=== PATIENT | male | born 1995 | race Caucasian/White ===

== ENCOUNTER 2016-10-15 17:06 | Emergency (ER) | payer OTHER ==
[~2016-10-15] VITALS: Ht 180.3 cm; Wt 104.3 kg
--- NOTE | 2016-10-15 17:06 | NUR ---
Patient was BIBA and taken to bed 03 via gurney per EMS.
[2016-10-15 17:11] VITALS: BP 158/77
--- NOTE | 2016-10-15 17:17 | NUR ---
21/M BIBA FROM HOME FOR SUICIDAL IDEATION PLACED ON HOLD BY KELSEY JETT. AAOX4 WITH EVEN AND STEADY GAIT;PT STATED PT USED MARIJUANA & HAD CUT HIS LEFT INNER FOREARM X LAST NIGHT BECAUSE PT IS DEPRESSED ABOUT A RECENT BREAK UP & OTHER ISSUES. PT STATED PT DOESN'T HAVE AN IDEA TO HURT OTHERS.PT DENIES TO HEAR VOICES. HX OF DEPRESSION BUT PT DOES NOT TAKE ANY MEDS. PT'S SKIN LEFT INNER FOREARM ABOUT 15 CUTS; NO ACTIVE BLEEDING NOTED AT THIS TIME. LUNGS CLEAR BL; HR EVEN AND REGULAR; PT DENIES ANY FEVER, CP, SOB, OR COUGH AT THIS TIME; PATIENT STATES PAIN OF 0/10 AT THIS TIME; PATIENT POSITIONED FOR COMFORT; HOB ELEVATED; BEDRAILS UP X2; BED DOWN. ER MD MADE AWARE OF PT STATUS.
--- NOTE | 2016-10-15 17:30 | NUR ---
Dr. Guzmán evaluaitng patient at bedside.
[2016-10-15 17:54] LABS: BASOPHILS # (AUTO) 0.4 K/uL (0.00-0.22); BASOPHILS % (AUTO) 2.3 % (0.0-2.0); EOSINOPHILS # (AUTO) 0.3 K/uL (0-0.4); EOSINOPHILS % (AUTO) 2.1 % (0.0-4.0); HEMATOCRIT 47.8 % (36-52); HEMOGLOBIN 15.9 g/dL (12.0-18.0); LYMPHOCYTES # (AUTO) 2.1 K/uL (2.0-11.5); LYMPHOCYTES % (AUTO) 13.2 % (20.5-51.1); MEAN CORPUSCULAR HEMOGLOBIN 29 pg (27-31); MEAN CORPUSCULAR HGB CONC 33 g/dL (33-37); MEAN CORPUSCULAR VOLUME 86 fL (80-94); MONOCYTES # (AUTO) 0.6 K/uL (0.8-1.0); MONOCYTES % (AUTO) 3.8 % (1.7-9.3); NEUTROPHILS # (AUTO) 12.7 K/uL (1.8-7.7); NEUTROPHILS % (AUTO) 78.6 % (42.2-75.2); PLATELET COUNT (AUTO) 258 K/uL (140-450); RED BLOOD CELL COUNT(AUTO) 5.56 MIL/uL (4.20-6.10); RED CELL DISTRIBUTION WIDTH 13.1 % (11.6-13.7); WHITE BLOOD COUNT (AUTO) 16.1 K/uL (4.5-11.0)
--- NOTE | 2016-10-15 18:00 | NUR ---
PT MOTHER AT BEDSIDE Addendum: 10/15/16 at 1922 by MEDJR AO X4, COOPERATIVE, SIDERAILS UP, SPEAKING APPROPRIATELY, WILL CONTINUE TO MONITOR
[2016-10-15 18:10] LABS: ALANINE AMINOTRANSFERASE 24 U/L (12-78); ALBUMIN 3.9 g/dL (3.4-5.0); ALKALINE PHOSPHATASE 74 U/L (46-116); ASPARTATE AMINOTRANSFERASE 14 U/L (15-37); CALCIUM 8.7 mg/dL (8.5-10.1); CARBON DIOXIDE 30.2 mmol/L (21-32); CHLORIDE 107 mmol/L (98-107); CREATININE 1.1 mg/dL (0.6-1.3); GFR ARICAN-AMERICAN 110 mL/min (>90); GFR NON ARICAN-AMERICAN 91 mL/min (>90); GLUCOSE 93 mg/dL (74-106); POTASSIUM 4.2 mmol/L (3.5-5.1); SALICYLATE 3.3 mg/dL (2.8-20.0); SODIUM SERUM 142 mmol/L (136-145); TOTAL BILIRUBIN 0.4 mg/dL (0.0-1.0); TOTAL PROTEIN, SERUM 7.1 g/dL (6.4-8.2); UREA NITROGEN, BLOOD 6 mg/dL (7-18)
[2016-10-15 18:11] LABS: ACETAMINOPHEN < 0.5 ug/ml (10-30); ALCOHOL, BLOOD < 3 mg/dL (<3)
[2016-10-15 18:34] LABS: BILIRUBIN,URINE NEGATIVE (NEGATIVE); BLOOD, URINE NEGATIVE (NEGATIVE); COLOR,URINE YELLOW (YELLOW); LEUKOCYTE ESTERASE ,URINE NEGATIVE (NEGATIVE); NITRITE, URINE NEGATIVE (NEGATIVE); PROTEIN,URINE NEGATIVE (NEGATIVE); UGLUCOSE NEGATIVE (NEGATIVE); UROBILINOGEN,URINE 0.2 EU/dL (0.2 - 1)
[2016-10-15 18:40] LABS: AMPHETAMINE, URINE NEG. ng/ml (NEG <=1000); BARBITURATE, URINE NEG. ng/ml (NEG <=200); BENZODIAZEPINE, URINE POS. ng/mL (NEG <=200); CANNABINOID, URINE POS. ng/mL (NEG <=50); COCAINE, URINE POS. ng/mL (NEG <=300); OPIATE, URINE NEG. ng/mL (NEG <=2000); PHENCYCLIDINE SCREEN,URINE NEG. ng/mL (NEG <=25)
--- NOTE | 2016-10-15 19:00 | NUR ---
MOTHER WENT TO THE WAITING ROOM, NOTIFIED PT IS A [employer] MEM[employer], FATHER IS NOW AT BEDSIDE
[2016-10-15 19:01] LABS: APPEARANCE,URINE CLEAR (CLEAR)
--- NOTE | 2016-10-15 19:09 | NUR ---
GAVE REPORT TO KARINA BARNES ; [facility]
--- NOTE | 2016-10-15 19:26 | NUR ---
Pt report given to KARINA LOZANO. Transfer of care at this time.
--- NOTE | 2016-10-15 20:00 | NUR ---
Conrad from [facility] called for report. Stated he will speak with his doctor re: admission.
--- NOTE | 2016-10-15 21:00 | NUR ---
Pt resting and talking with GF at bedside. No changes.
[2016-10-15 22:06] VITALS: BP 134/72
--- NOTE | 2016-10-15 22:06 | NUR ---
Patient to be transferred to [facility]. Is being transferred due to 5150 facility needed. Receiving facility has accepting physician and available space. ER physician has signed transfer form. Patient or responsible democrat has agreed to transfer and signed form. Patient belongings inventoried and will be sent with patient. Copy of nursing notes, lab reports, EKG, Physicians Orders and X-rays to be sent with patient. Report called to KARINA Castillo at receiving facility. [facility] [place] ambulance service has been called for transfer. ETA is 30 min.
--- NOTE | 2016-10-15 22:07 | NUR ---
PT TAKEN BY [facility] TRANSPORT TO [facility] ROOM 715-2
== END 2016-10-15 22:07 | disposition designated cancer center or children's hospital (05) ==
LOC: MED 17:06
DX: F32.9 Major depressive disorder, single episode, unspecified (principal); F19.10 Other psychoactive substance abuse, uncomplicated; R45.851 Suicidal ideations
CPT/HCPCS: 36415; 80053; 80305; 81003; 85025; 99285; G0480; G0482

== ENCOUNTER 2017-06-15 05:55 | Emergency (ER) | payer OTHER ==
[~2017-06-15] VITALS: Ht 182.9 cm; Wt 113.4 kg
--- NOTE | 2017-06-15 05:55 | NUR ---
PT PLACED IN HOSPITAL GOWN, ALL HARMFUL ITEMS REMOVED FROM ER BED 1. PT PLACE WITH SITTER OUTSIDE BED (SUDHAKAR)
--- NOTE | 2017-06-15 05:55 | NUR ---
PT BIBA WITH KELSEY JETT, PLACED ON 5150 HOLD. PT STATES HE WAS ARGUING WITH HIS FATHER ABOUT CAREER CHOICE AND HOW THE PT IS A DISAPPOINTMENT. PT HAS SUPERFICIAL NON BLEEDING CUTS TO THE LEFT FA, THAT HE STATES USING A SUDHA BLADE FROM THE KITCHEN WHERE PT LIVES. PT DOES NOT RECALL LAST TETANUS SHOT. PT ALSO HAS BRUISING AND ERYTHEMA NOTED TO THE 4TH FINGER OF RIGHT HAND FROM WRESTLING WITH HIS ROOM MATES WHEN THEY FOUND OUT THE PT WAS TRYING TO HURT HIMSELF. PT STATES THIS IS HIS 3RD ATTEMPT TO HURT HIMSELF. PT ALSO ADMIT TO TAKING XANAX 4MG, 1 GRAM OF COCAINE, AND UNKNOWN AMOUNT OF MARAJUANA. PT DENIES ANY CP OR SOB AT THE MOMENT. PT AAOX4.
--- NOTE | 2017-06-15 05:55 | NUR ---
BIBA TO ER BED 1
--- NOTE | 2017-06-15 05:56 | NUR ---
PT STATES PARENTS ARE AWARE THAT PT WAS TAKEN TO [facility]; PT STATES HE DOES NOT WANT TO INTERACT WITH FATHER (LAURA MONTGOMERY) BUT MOTHER (QUEENIE ULISES) IS OKAY.
--- NOTE | 2017-06-15 05:56 | NUR ---
Patient being evaluated by physician at bedside.
--- NOTE | 2017-06-15 05:56 | NUR ---
PT MENTAL STATUS IS CALM, COOPERATIVE. PT CURRENTLY CONNECT TO [facility]. VSS.
[2017-06-15 06:09] VITALS: BP 130/76
[2017-06-15] MEDS ORDERED: IBUPROFEN 800 MG TAB PO ONE (06:10)
[2017-06-15 06:49] LABS: ANION GAP 12.3 (8-16); CARBON DIOXIDE 27.3 mmol/L (21-32); CHLORIDE 109 mmol/L (98-107); CREATININE 1.3 mg/dL (0.7-1.3); GFR ARICAN-AMERICAN 90 mL/min (>90); GLUCOSE 112 mg/dL (74-106); POTASSIUM 4.6 mmol/L (3.5-5.1); SODIUM SERUM 144 mmol/L (136-145); UREA NITROGEN, BLOOD 7 mg/dL (7-18)
[2017-06-15 06:54] LABS: HEMATOCRIT 42.6 % (36-52); HEMOGLOBIN 14.3 g/dL (12.0-18.0); MEAN CORPUSCULAR HEMOGLOBIN 29 pg (27-31); MEAN CORPUSCULAR HGB CONC 34 g/dL (33-37); MEAN CORPUSCULAR VOLUME 86 fL (80-94); PLATELET COUNT (AUTO) 241 K/uL (140-450); RED BLOOD CELL COUNT(AUTO) 4.97 MIL/uL (4.20-6.10); RED CELL DISTRIBUTION WIDTH 12.4 % (11.6-13.7); WHITE BLOOD COUNT (AUTO) 9.2 K/uL (4.8-10.8)
[2017-06-15 06:55] LABS: ALBUMIN 3.5 g/dL (3.4-5.0); ASPARTATE AMINOTRANSFERASE 13 U/L (15-37); TOTAL BILIRUBIN 0.2 mg/dL (0.0-1.0)
[2017-06-15 06:56] LABS: BARBITURATE, URINE POS. ng/ml (NEG <=200); BENZODIAZEPINE, URINE POS. ng/mL (NEG <=200); CANNABINOID, URINE POS. ng/mL (NEG <=50); COCAINE, URINE POS. ng/mL (NEG <=300); OPIATE, URINE NEG. ng/mL (NEG <=2000); PHENCYCLIDINE SCREEN,URINE NEG. ng/mL (NEG <=25)
[2017-06-15 06:59] LABS: ACETAMINOPHEN < 0.5 ug/ml (10-30); SALICYLATE < 2.8 mg/dL (2.8-20.0)
[2017-06-15 07:00] LABS: EOSINOPHILS % (MANUAL) 1 % (0-4); LYMPHOCYTES % (MANUAL) 40 % (20-46); MONOCYTES % (MANUAL) 7 % (5-12)
--- NOTE | 2017-06-15 07:10 | NUR ---
RECEIVED REPORT FROM KARINA AN. PT CALM, COOPERATIVE. PT IS AOX4. RR ARE EVEN AND UNLABORED. PT WITH NO COMPLAINTS. SUICIDIAL PRECAUTIONS IN PLACE. SITTER BY BEDSIDE.
--- NOTE | 2017-06-15 07:42 | NUR ---
SPOKE TO DEANNA Peralta FROM [facility] FOR PLACEMENT, [facility] WILL CALL BACK WITH PLACEMENT INFORMATION. INFORMED ASSISTANT FOOD SERVICE MANAGER JOHN.
[2017-06-15] MEDS ORDERED: BACITRACIN OINT 500 UNITS/GM PKT TP ONE (07:47)
--- NOTE | 2017-06-15 08:30 | NUR ---
PT CALM, COOPERATIVE. PT AWAKE AND SITTING UP IN BED. PT IS AOX4. RR ARE EVEN AND UNLABORED. PT WITH NO COMPLAINTS. SUICIDIAL PRECAUTIONS IN PLACE. SITTER BY BEDSIDE.
--- NOTE | 2017-06-15 10:08 | NUR ---
spoke from priya from [facility]. gave report. priya stated she will give report to doctor to see if they will accept patient.
--- NOTE | 2017-06-15 11:06 | NUR ---
Capo ellsworth in [facility] - 06/15/17 at 1106 by MEDALEX TALKED WITH JAY TO CONFIRM INSURANCE FOR ADMISSION
--- NOTE | 2017-06-15 11:10 | NUR ---
Patient resting with eyes closed. RR ARE EVEN AND UNLABORED. PT WITH NO COMPLAINTS. SUICIDIAL PRECAUTIONS IN PLACE. SITTER BY BEDSIDE.
[2017-06-15 11:43] VITALS: BP 146/92
--- NOTE | 2017-06-15 11:43 | NUR ---
Patient to be transferred to [facility]. Is being transferred due to continuation of care. Receiving facility has accepting physician and available space. ER physician has signed transfer form. Patient or responsible democrat has agreed to transfer and signed form. Patient belongings inventoried and will be sent with patient. Copy of nursing notes, lab reports, EKG, Physicians Orders and X-rays to be sent with patient. Report called to priya at receiving facility. [facility] ambulance service has been called for transfer. ETA is 1 hour.
== END 2017-06-15 11:43 ==
LOC: MED 05:55
DX: S60.812A Abrasion of left wrist, initial encounter (principal); R03.0 Elevated blood-pressure reading, without diagnosis of hypertension; F32.9 Major depressive disorder, single episode, unspecified; F41.9 Anxiety disorder, unspecified; X78.8XXA Intentional self-harm by other sharp object, initial encounter; Y93.89 Activity, other specified; Y92.89 Other specified places as the place of occurrence of the external cause; Y99.8 Other external cause status
CPT/HCPCS: 36415; 73130; 80053; 80305; 85025; 90471; 90715; 93005; 99285; G0480; G0482

== ENCOUNTER 2022-01-31 01:41 | Inpatient (IN) | payer OTHER ==
[~2022-01-31] VITALS: Ht 177.8 cm; Wt 105.3 kg
[2022-01-31] VITALS (21 sets, daily range): BP systolic 81–147; BP diastolic 48–103
--- NOTE | 2022-01-31 01:41 | NUR ---
0136- PT BIBA ALS. TAKEN TO BED 10. DR. CRUZ AND RT AT BEDSIDE
[2022-01-31] MEDS ORDERED: INTUBATION KIT MC ONE (01:45)
[2022-01-31] MEDS ORDERED: PROPOFOL 1000 MG/100 ML PREMIX 100 ML IV ONE ×2 (01:45→01:56)
[2022-01-31] MEDS ORDERED: SUCCINYLCHOLINE CHLORIDE 200 MG/10 ML VIAL IVP ONE (01:45)
[2022-01-31] MEDS ORDERED: ETOMIDATE 20 MG/10 ML VIAL IVP ONE (01:45)
--- NOTE | 2022-01-31 01:45 | NUR ---
PT BIBA FULL ARREST, PT WAS FOUND UNRESPONSIVE BY FAMILY, PT FAMILY DID NOT START CPR, CPR STARTED BY PD AND ADMININSTERED 4 MG NARCAN IN, EMS ADMINISTERED 2MG IV, PT RESPONDED TO NARCAN, PT CAME IN ON O2 6L VIA N/C. ON ARRIVAL PT WAS UNRESPONSIVE AND BREATHING WITH BILATERAL RALES, PT WAS FOUND WITH VOMIT ALL OVER, DR CRUZ, RT YESI AND LEE RT AT BEDSIDE, CN AT BEDSIDE. ASSUME CARE AT THIS TIME. PT PLACED ON LABORER PETROLEUM REFINERY, 02 SATURATION 70'S.
--- NOTE | 2022-01-31 01:50 | NUR ---
Dr. Nguyen examining patient.
--- NOTE | 2022-01-31 01:52 | NUR ---
PT O2 SATURATION 75%, PT INTUBATED BY DR OCONNOR WITH 8.0 ETT TUBE AT 24 @ TEETH, RSI MEDICATIONS USED Addendum: 01/31/22 at 0456 by [id number] RT KEY AT BEDSIDE, MOE AND RN AT BEDSIDE, 16FR OG PLACED, VERIFED BY AUSCULTATION.16 FR HAHN CATHETER PLACED,
--- NOTE | 2022-01-31 01:53 | NUR ---
X-Ray at bedside.
--- NOTE | 2022-01-31 01:53 | NUR ---
DR NANCY BARBERIFEMagali +LUNG SOUNDS, +COLOR CHANGE, EQUAL RISE AND FALL OF CHEST. PT PLACED ON VENT BY RT, VENT SETTING A/C RATE 14, PEEP 5, VT 550, FIO2 100%.
--- NOTE | 2022-01-31 01:54 | NUR ---
DR NANCY BAUTISTA ETT TUBEAND OG TUBE PLACEMENT WITH XRAY
--- NOTE | 2022-01-31 01:55 | NUR ---
0151- INTUBATION INTIATED BY DR. CRUZ. SIZE 8 ETT USED, 24 AT THE TEETH. ETOMIDATE 20MG GIVEN AT 0150 SUCCINYLCHOLINE 100MG GIVEN AT 0151
[2022-01-31 02:01] LABS: BASOPHILS # (AUTO) 0.1 K/uL (0.00-0.22); BASOPHILS % (AUTO) 0.4 % (0.0-2.0); EOSINOPHILS # (AUTO) 0.3 K/uL (0-0.4); EOSINOPHILS % (AUTO) 1.3 % (0.0-4.0); HEMATOCRIT 44.5 % (36-52); HEMOGLOBIN 14.4 g/dL (12.0-18.0); MEAN CORPUSCULAR HEMOGLOBIN 29 pg (27-31); MEAN CORPUSCULAR HGB CONC 32 g/dL (33-37); MONOCYTES # (AUTO) 0.6 K/uL (0.8-1.0); MONOCYTES % (AUTO) 2.9 % (1.7-9.3); NEUTROPHILS # (AUTO) 19.5 K/uL (1.8-7.7); NEUTROPHILS % (AUTO) 86.4 % (42.2-75.2); PLATELET COUNT (AUTO) 316 K/uL (140-450); RED BLOOD CELL COUNT(AUTO) 5.06 MIL/uL (4.20-6.10); RED CELL DISTRIBUTION WIDTH 13.6 % (11.6-13.7); WHITE BLOOD COUNT (AUTO) 22.5 K/uL (4.8-10.8)
[2022-01-31] MEDS ORDERED: cefTRIAXone 1,000 MG in DEXT 5% MINI-BAG PLUS 50 ML IV ONE (02:10)
--- NOTE | 2022-01-31 02:10 | NUR ---
RT AT ED FOR FULL ARREST PT. ALL EQUIPMENT CHECKED AND SET UP. DR. CRUZ INTUBATED PT AT 0151 WITH ETT SIZE 8.0 AND SECURED AT 24 AT THE TEETH, NO COMPLICATIONS. COARSE BILATERAL BREATH SOUNDS ON AUSCULTATION. CO2 DETECTOR COLOR CHANGE. XRAY ORDERED. PT WAS PLACED ON VENTILATOR AC/VC 550VT,14RR,+5,100%. SPUTUM CULTURE OBTAINED AND SENT TO LAB. AND WILL FOLLOW UP WITH AN ABG IN AN HOUR. WHEELS ARE LOCKED, ALARMS ARE SET AND AUDIBLE, AMBU BAG AT BEDSIDE.
[2022-01-31 02:14] LABS: ALBUMIN 3.7 g/dL (3.4-5.0); ANION GAP 18.9 (8-16); CARBON DIOXIDE 27.5 mmol/L (21-32); CREATININE 2.2 mg/dL (0.6-1.3); POTASSIUM 4.4 mmol/L (3.5-5.1); TOTAL BILIRUBIN 0.6 mg/dL (0.0-1.0)
--- NOTE | 2022-01-31 02:26 | NUR ---
SPOKE TO TETO FROM PHARMACY IN REGARDS TO PROFOLOL ORDER. STATED THAT THEY HAD TO VERIFY HT AND WT AND ARE CURRENTLY WORKING ON APPROVING IT.
[2022-01-31 02:33] LABS: BARBITURATE, URINE NEGATIVE ng/ml (NEG <=200); BENZODIAZEPINE, URINE POSITIVE ng/mL (NEG <=200); CANNABINOID, URINE NEGATIVE ng/mL (NEG <=50); COCAINE, URINE POSITIVE ng/mL (NEG <=300); OPIATE, URINE NEGATIVE ng/mL (NEG <=2000); PHENCYCLIDINE SCREEN,URINE NEGATIVE ng/mL (NEG <=25)
[2022-01-31] MEDS ORDERED: NACL 0.9% 1,000 ML IV ONE ×2 (02:40→04:40)
[2022-01-31] MEDS ORDERED: cefTRIAXone 500 MG VIAL ONE (03:04)
--- NOTE | 2022-01-31 03:30 | NUR ---
ABG READ BACK TO DR. CRUZ. TITRATING FIO2 DOWN TO 65% FROM 100% PER ABG RESULTS.
--- NOTE | 2022-01-31 03:38 | NUR ---
Dr. Nguyen at bedside with patient family
--- NOTE | 2022-01-31 03:46 | NUR ---
PER DR. CRUZ. RT CALLED TO BEDSIDE TO INCREASE RESPIRATORY RATE FROM 14 TO 18. PT IS STILL SATING 100%.
[2022-01-31] MEDS ORDERED: MIDAZOLAM MDV 50 MG in NACL 0.9% 40 ML IV PRN (04:40)
[2022-01-31] MEDS ORDERED: MIDAZOLAM 5 MG/5 ML VIAL ONE (04:46)
[2022-01-31] MEDS ORDERED: MIDAZOLAM 5 MG/5 ML VIAL IV ONE ×2 (04:50→05:20)
[2022-01-31] MEDS ORDERED: MIDAZOLAM MDV 50 MG/10 ML VIAL IV ONE (04:55)
--- NOTE | 2022-01-31 05:43 | NUR ---
Capo ellsworth in [facility] - 01/31/22 at 0543 by PETR X-Ray at bedside.
--- NOTE | 2022-01-31 06:00 | NUR ---
REPORT RECEIVED REPORT RECEIVED FROM SARAH BETH IN ED AND PT TO BE TRANSFERRED TO ICU SHORTLY
--- NOTE | 2022-01-31 06:00 | NUR ---
Patient will be admitted to care of OBED PICKARD. Admited to ICU. Will go to room 5. Belongings list completed. Report to JACE COLLINS.
--- NOTE | 2022-01-31 06:15 | NUR ---
ADMIT RECIEVED PT FROM ED. PT IN BILAT WRIST RESTRAINTS. PT AOX0, PULLING ON RESTRAINTS AND TRYING TO TALK. PT HAS VERSED DRIP AT 2MG/HR. PT INTUBATED WITH ETT SIZE 8.0 AND SECURED AT 24 AT THE TEETH, WITH COARSE BILATERAL BREATH SOUNDS ON AUSCULTATION. PT ON VENTILATOR AC/VC 550VT, 18RR, +5, 50%. MRSA COLLECTED AND SENT TO LAB. PT HAS F/C WITH LYDIA COLOR URINE DRAINING TO GRAVITY. ALL SAFETY PRECAUTIONS IN PLACE. WILL CONTINUE TO MONITOR
--- NOTE | 2022-01-31 06:15 | NUR ---
RT CALLED FOR TRANSFER OF PT TO ICU BED 5. PT TRANSFERRED WITH NO ISSUES, ETT TUBE IS STILL SECURED AT 24 @ THE TEETH, BILATERAL BREATH SOUNDS, SUCTION CATHETER PASSED CLEARLY. VENT ALARMS ARE SET AND AUDIBLE AND AMBU BAG AT BEDSIDE.
[2022-01-31] MEDS ORDERED: guaiFENesin DM 200/20 MG-10 ML 10 ML UDC PO PRN (06:50)
[2022-01-31] MEDS ORDERED: HYDROcodone/APAP 7.5/325 MG 1 TAB PO PRN (06:50)
[2022-01-31] MEDS ORDERED: DOCUSATE SODIUM 100 MG GELCAP PO PRN (06:50)
[2022-01-31] MEDS ORDERED: ONDANSETRON 4 MG/2 ML VIAL IM/IVP PRN (06:50)
[2022-01-31] MEDS ORDERED: ZOLPIDEM 5 MG TAB PO PRN (06:50)
[2022-01-31] MEDS ORDERED: POTASSIUM CHLORIDE 10 MEQ TABER PO PRN (06:50)
[2022-01-31] MEDS ORDERED: PROPOFOL 1000 MG/100 ML PREMIX 100 ML IV PRN (07:00)
--- NOTE | 2022-01-31 07:05 | NUR ---
Seen and examined by Dr. Worrell. New order received.
[2022-01-31] MEDS: ALBUTEROL SULFATE/IPRATROPIU 3 ML SOL IH PRN (07:09)
--- NOTE | 2022-01-31 07:15 | NUR ---
RECEIVED PT ON ACVC RR18, TV550, +5, 50%. VENT IS PLUGGED INTO RED OUTLET, WHEELS ARE LOCKED, AMBUBAG AT BEDSIDE AND ALARMS ARE SET AND AUDIBLE. GOAL: TITRATE FIO2. EQUAL CHEST RISE AND COARSE BREATH SOUNDS. PT ABLE TO SQUEEZE HAND AND RESPOND TO YES AND NO QUESTIONS. WILL CONTINUE TO MONITOR.
[2022-01-31 07:22] LABS: BASOPHILS % (AUTO) 0.2 % (0.0-2.0); HEMATOCRIT 40.8 % (36-52); HEMOGLOBIN 13.4 g/dL (12.0-18.0); LYMPHOCYTES % (AUTO) 7.2 % (20.5-51.1); MEAN CORPUSCULAR HEMOGLOBIN 29 pg (27-31); MEAN CORPUSCULAR HGB CONC 33 g/dL (33-37); MEAN CORPUSCULAR VOLUME 86.8 fL (80-94); MONOCYTES # (AUTO) 0.8 K/uL (0.8-1.0); MONOCYTES % (AUTO) 5.6 % (1.7-9.3); NEUTROPHILS # (AUTO) 11.8 K/uL (1.8-7.7); PLATELET COUNT (AUTO) 266 K/uL (140-450); RED CELL DISTRIBUTION WIDTH 13.3 % (11.6-13.7); WHITE BLOOD COUNT (AUTO) 13.5 K/uL (4.8-10.8)
--- NOTE | 2022-01-31 07:28 | NUR ---
REPORT REPORT GIVEN TO SHERMAN
[2022-01-31] MEDS: NACL 0.9% 1,000 ML IV SCH ×2 (07:31→16:52)
[2022-01-31 07:44] LABS: PROTHROMBIN TIME 12.2 secs (10.8-13.4)
--- NOTE | 2022-01-31 07:45 | NUR ---
Received pt able to squeeze hands/nod to answer questions. ETT to vent settings AC/VC TV 550 rate 18 PEEP 5 FiO2@ 40%. Sinus rhythm on monitor. OG-tube clamped. Montiel catheter intact and draining to BSD. Peripheral IV 18 gauge RAC intact and patent infusing NS @100ml/hr. Peripheral IV 18 gauge LAC intact and patent infusing Propofol @5mcg/kg/min. Bilat soft wrist restraints in place. Safety precautions in place.
[2022-01-31 07:50] LABS: ANION GAP 17.6 (8-16); CREATININE 1.2 mg/dL (0.6-1.3); POTASSIUM 4.6 mmol/L (3.5-5.1)
[2022-01-31 07:54] LABS: ALBUMIN 2.9 g/dL (3.4-5.0); ANION GAP 17.1 (8-16); CARBON DIOXIDE 19.6 mmol/L (21-32); CREATININE 1.3 mg/dL (0.6-1.3); POTASSIUM 4.7 mmol/L (3.5-5.1); TOTAL BILIRUBIN 0.5 mg/dL (0.0-1.0)
[2022-01-31 08:24] LABS: AMYLASE 424 U/L (25-115); CHOL/HDL RATIO 1.8 (1-4.5); HDL CHOLESTEROL 47 mg/dL (40-60); LDL (CALC) 27 mg/dL (60-100); LIPASE 45 U/L (73-393); MAGNESIUM 1.7 mg/dL (1.8-2.4); PHOSPHORUS 4.1 mg/dL (2.5-4.9); THYROID STIMULATING HORMONE 0.26 uIU/mL (0.34-3.74); TRIGLYCERIDES 48 mg/dL (30-150)
--- NOTE | 2022-01-31 08:31 | NUR ---
Reported elevated troponin to Dr. Worrell.
[2022-01-31] MEDS: PANTOPRAZOLE 40 MG INJ VIAL IVP SCH (09:13)
--- NOTE | 2022-01-31 09:21 | NUR ---
PATIENT HAS BEEN SCREENED AND CATEGORIZED HIGH NUTRITION RISK. PATIENT WILL BE SEEN WITHIN 1-2 DAYS OF ADMISSION. 02/01/22-02/02/[address] RE[address] BY [address]
--- NOTE | 2022-01-31 11:00 | NUR ---
Transferred pt to CT scan of head. Returned back safely to ICU bed 5. Safety precautions in place.
--- NOTE | 2022-01-31 11:00 | NUR ---
TRANSFERRED PT TO CT AND BACK. NO COMPLICATIONS. PT RETURNED TO VENT. CPAP TRIAL 02/12, 35% FIO2.
--- NOTE | 2022-01-31 11:29 | NUR ---
Seen and examined by Dr. Young. New orders received. For weaning trial today. RT aware.
--- NOTE | 2022-01-31 11:37 | NUR ---
Notified Dr. Worrell regarding troponin of 406 and EKG results. No new orders.
--- NOTE | 2022-01-31 12:25 | NUR ---
PT LASTED FOR 1 HOUR ON CPAP TRIAL. [facility] TRIGGERED IT BACK TO FULL VENT SUPPORT. CURRENT SETTING ACVC RR18,TV550,+5, 35%FIO2. PT IS RESPONSIVE TO QUESTIONS AND FOLLOWS COMMANDS.
[2022-01-31] MEDS: ACETAMINOPHEN 325 MG TAB PO PRN (12:33)
[2022-01-31] MEDS: metroNIDAZOLE 500 MG/NS PREMIX 100 ML IV SCH ×2 (12:40→20:37)
[2022-01-31] MEDS ORDERED: PIPERACILLIN/TAZOBACTAM 3.375 GM in DEXTROSE 5% 50 ML IV SCH (13:00)
--- NOTE | 2022-01-31 14:40 | NUR ---
REPEATED CPAP TRIAL, SETTING 10/5, FIO2 30%. [facility] ALARM TRIGGERS PT BACK TO PREVIOUS MODE.
--- NOTE | 2022-01-31 14:55 | NUR ---
PT NEEDS TO BE COACHED TO BREATH ON CPAP. [facility] ALARM TRIGGERS THE VENT TO PREVIOUS ACVC MODE OF TV550,RR18,FLOW 35, +5, 30%FIO2. PT IS AWAKE AND RESPONDS TO QUESTIONS AND COMMANDS. HE WROTE," DONT GIVE UP ON ME." WHILE USING HIS GRANDFATHERS CELL PHONE. WILL TRY AGAIN TOMORROW.
[2022-01-31] MEDS: DEXMEDETOMIDINE HCL 400 MCG in NACL 0.9% 96 ML IV PRN (16:01)
[2022-01-31] MEDS ORDERED: NOREPINEPHRINE 4 MG in DEXTROSE 5% 250 ML IV PRN (16:55)
--- NOTE | 2022-01-31 17:00 | NUR ---
Called PICC line nurse for PICC placement. Joe will call for ETA.
--- NOTE | 2022-01-31 19:30 | NUR ---
Endorsed to night worker nurse for continuity of care.
[2022-02-01] VITALS (24 sets, daily range): BP systolic 93–107; BP diastolic 51–73
--- NOTE | 2022-02-01 01:19 | NUR ---
RT AT BEDSIDE, FIO2 DECREASED TO 24%.SATURATION 100%.WILL CONTINUE TO MONITOR
[2022-02-01] MEDS: NACL 0.9% 1,000 ML IV SCH ×3 (03:37→22:50)
[2022-02-01] MEDS: DEXMEDETOMIDINE HCL 400 MCG in NACL 0.9% 96 ML IV PRN (03:39)
[2022-02-01] MEDS: cefTRIAXone 2,000 MG in DEXTROSE 5% 100 ML IV SCH (03:40)
[2022-02-01] MEDS: metroNIDAZOLE 500 MG/NS PREMIX 100 ML IV SCH ×3 (04:58→21:00)
[2022-02-01 05:28] LABS: BASOPHILS # (AUTO) 0.1 K/uL (0.00-0.22); BASOPHILS % (AUTO) 0.6 % (0.0-2.0); EOSINOPHILS # (AUTO) 0.1 K/uL (0-0.4); EOSINOPHILS % (AUTO) 0.5 % (0.0-4.0); HEMATOCRIT 36.8 % (36-52); HEMOGLOBIN 12.4 g/dL (12.0-18.0); LYMPHOCYTES # (AUTO) 1.6 K/uL (2.0-11.5); LYMPHOCYTES % (AUTO) 14.8 % (20.5-51.1); MEAN CORPUSCULAR HEMOGLOBIN 29 pg (27-31); MEAN CORPUSCULAR HGB CONC 34 g/dL (33-37); MONOCYTES # (AUTO) 0.8 K/uL (0.8-1.0); MONOCYTES % (AUTO) 7.1 % (1.7-9.3); NEUTROPHILS # (AUTO) 8.4 K/uL (1.8-7.7); PLATELET COUNT (AUTO) 209 K/uL (140-450); RED BLOOD CELL COUNT(AUTO) 4.28 MIL/uL (4.20-6.10); RED CELL DISTRIBUTION WIDTH 13.5 % (11.6-13.7)
[2022-02-01 05:31] LABS: CARBON DIOXIDE 22.7 mmol/L (21-32); CREATININE 0.8 mg/dL (0.6-1.3); POTASSIUM 3.7 mmol/L (3.5-5.1)
--- NOTE | 2022-02-01 06:44 | NUR ---
Afebrile overnight with decreasing O2 requirement. Remains intubated/sedated dex@0.3, RASS-3. AC 21% +5, 18RR 100%SpO2. [id number] BARNEY. SR, remains on levo@2 to maintain MAP>65. Kept NPO, OGT clamped. No BM overnight. UOP adequate. Obtained DL PICC to RUE overnight, PIVx2, site unremarkable. Safety/aspiration precautions cont. BSWR to prevent loss of medically necessary tubes/lines. AM labs unremarkable. Leena Nice RN
--- NOTE | 2022-02-01 07:45 | NUR ---
Received pt in bed with eyes closed and responds to voice. ETT to vent settings AC/VC TV 550 rate 18 PEEP 5 FiO2@21%. Sinus rhythm on monitor. OG-tube intact. Montiel catheter in place draining to BSD. PICC line on right upper arm intact and patent infusing Precedex @0.3 mcg/kg/hr and levophed @ 2mcg/min. Peripheral IV 18 gauge intact and patent on right AC infusing NS @100ml/hr. Peripheral IV 18 gauge on LAC saline locked. Bilat soft wrist restraints in place. No signs of injury.
--- NOTE | 2022-02-01 07:59 | NUR ---
RECEIVED ON A EventupAPE R860 VENTILATOR PLUGGED INTO RED OUTLET TOLERATING WELL WITHOUT ADVERSE REACTIONS NOTED AN ENDOTRACHEAL TUBE #8.0 SECURED AT 24cm TEETH/GUM LINE SECURED WITH AN ANCHOR FAST CUFF PRESSURE CHECKED NOTED AMBU BAG AT BEDSIDE RESTING COMFORTABLY SEDATED PRECEDEX 0.03mcg EASILY AWAKENS FOLLOWS TABLEAU ADMINISTRATOR COMMANDS EQUAL CHEST RISE DURING HHN AND CPT THERAPY TO RLL PATIENT PRESENTING WITH STRONG COUGH X 2 ENDOTRACHEAL TUBE SUCTION FOR LARGE THICK BLOOD YELLOW SECRETIONS OROPHARYNGEAL SUCTION FOR LARGE THIN YELLOW SECRETIONS AIRWAY PATENT CPAP TEST PEEP 5 cmH2O PS 10 cmH2O SpVt +750ml PATIENT APPROPRIATE FOR CPAP TRIALS TABLEAU ADMINISTRATOR TO INITIATE AT 0900 ALONG WITH SEDATION VACATION
[2022-02-01] MEDS: PANTOPRAZOLE 40 MG INJ VIAL IVP SCH (08:11)
[2022-02-01] MEDS: ENOXAPARIN 40 MG/0.4 ML SYR SUBQ SCH (08:12)
--- NOTE | 2022-02-01 09:10 | NUR ---
DR. VIRGINIA DE LEON AT BEDSIDE SULKY DRIVER AND SHERMAN/RN ATTENDING REVIEWED LOC, PULMONARY STATUS, VENTILATOR STATUS, CXR 01/31/22 RIGHT BASILAR CONSOLIDATION (SULKY DRIVER INITIATION AT 0749); HHN THERAPY FREQUENCY; CPAP TRIALS INITIATED BY CPAP 5cmH2O ps 8cmH2O FIO2 30% VORBO DR DE LEON; CPAP TRIALS X 30 MINUTES IF TOLERATING OKAY TO EXTUBATE NO ABG AND BIPAP NOCS REQUIRED; HHN THERAPY FREQUENCY Q6WA; OXYGEN SATURATION GREATER THAN 92%; OFF SEDATION OF PRECEDEX START ATIVAN (SHERMAN/RN AWARE)
--- NOTE | 2022-02-01 09:18 | NUR ---
DURING WEANING PARAMETERS PATIENT PRESENTING WITH STRONG COUGH X 2 ENDOTRACHEAL SUCTION FOR MODERATE SEMI THICK YELLOW SECRETIONS
--- NOTE | 2022-02-01 09:20 | NUR ---
Dr. Lopez at bedside examining patient and updated pt mom at bedside. Pt on CPAP trial and RT at bedside and made aware. New order received.
[2022-02-01] MEDS ORDERED: LORazepam 2 MG/ML VIAL IVP PRN (09:25)
--- NOTE | 2022-02-01 10:12 | NUR ---
TOLERATING CPAP TRIAL WELL WITHOUT PULMONARY DISTRESS NOTED GOOD CHEST RISE ENDOTRACHEAL SUCTION FOR MODERATE THIN YELLOW SECRETIONS PATIENT APPROPRIATE FOR EXTUBATION
--- NOTE | 2022-02-01 10:20 | NUR ---
LOC AWAKE AND ALERT EDUCATION PROVIDED TO PATIENT ON EXTUBATION PROCEDURE MOTHER AT BEDSIDE ENDOTRACHEAL TUBE SUCTION FOR SMALL THIN YELLOW SECRETIONS OROPHARYNGEAL SUCTION FOR MODERATE THIN YELLOW SECRETIONS AIRWAY PATENT ANCHOR FAST STRAP REMOVED CUFF DEFLATE PROFESSIONAL SKATER BALLOON FLAT INSTRUCTED PATIENT FOR DEEP BREATH ENDOTRACHEAL TUBE REMOVED AT THIS TIME NO ADVERSE REACTIONS NOTED PLACED ON A COOL AEROSOL AT 30%/6 LPM TO ADULT AEROSOL MASK EQUAL/GOOD CHEST RISE DRIVEWAY ATTENDANT WITH FOLLOWING QUESTIONS 1)ARE YOU DOING OKAY? PATIENT RESPONSE YES 2) ARE YOU SHORT OF BREATH? PATIENT RESPONSE YES; DRIVEWAY ATTENDANT TO GIVE HHN PRN THERAPY
--- NOTE | 2022-02-01 10:25 | NUR ---
RT extubated pt. No respiratory distress noted.
--- NOTE | 2022-02-01 10:36 | NUR ---
Seen and examined by Dr. Worrell. New order received.
--- NOTE | 2022-02-01 11:30 | NUR ---
Performed bedside swallow eval. Pt able to tolerate ice chips well. Gave small sips of water. Able to tolerate well.
--- NOTE | 2022-02-01 11:41 | NUR ---
REVIEWED WITH DR. VIRGINIA DE LEON PATIENT EXTUBATION STATUS: STABLE NO RESPIRATORY DISTRESS NOTED EVEN THOUGH PATIENT C/O SOB; HHN PRN THERAPY GIVEN; EQUAL CHEST RISE RR 20 BPM; COOL AEROSOL TO AEROSOL MASK AT 30% SATURATION 100%; DISTRIBUTED GENERATION PROJECT MANAGER TO INITIATE INCENTIVE SPIROMETRY AT 1300 HHN THERAPY MD STATED "OKAY"
[2022-02-01] MEDS: CALCIUM CARBONATE 500 MG TAB PO SCH ×2 (11:44→21:00)
--- NOTE | 2022-02-01 12:00 | NUR ---
Pt with low grade fever. See vital sign assessment. Cooling measures in place.
[2022-02-01] MEDS: ALBUTEROL SULFATE/IPRATROPIU 3 ML SOL IH PRN (12:13)
[2022-02-01] MEDS: ACETAMINOPHEN 325 MG TAB PO PRN (12:18)
--- NOTE | 2022-02-01 15:00 | NUR ---
Pt resting in bed comfortably. No signs of distress.
--- NOTE | 2022-02-01 17:30 | NUR ---
TOLERATED INCENTIVE SPIROMETRY WELL. NO COMPLICATIONS. CHANGED COOL AEROSOL TO NASAL CANNULA AT 2LPM D.NADUA SRT
--- NOTE | 2022-02-01 17:45 | NUR ---
RT at bedside. Pt on 2L via nasal cannula and tolerating well.
[2022-02-01] MEDS: ALBUTEROL SULFATE/IPRATROPIU 3 ML SOL IH SCH (19:15)
--- NOTE | 2022-02-01 19:15 | NUR ---
Endorsed to maintenance technician 2nd shift nurse for continuity of care.
--- NOTE | 2022-02-01 23:00 | NUR ---
RECEIVED REPORT FROM STEVE COLLINS FOR CONTINUITY OF CARE.PT ASLEEP,SR NOTED ON MONITOR.ON ROOM AIR.NO SOB NOTED,02SAT 92%.JONAS PICC LINE INTACT INFUSING ORDERED IVF.HAHN CATHETER INTACT WITH SMALL AMT OF CLOUDY LIGHT LYDIA NOTED.NO S/SX OF PAIN NOTED.WILL CONTINUE TO CLOSELY MONITOR PT
[2022-02-02] VITALS (15 sets, daily range): BP systolic 101–126; BP diastolic 53–91
--- NOTE | 2022-02-02 00:59 | NUR ---
PT STILL ASLEEP; NO S/SX OF RESP DISTRESS NOTED.NO S/SX OF PAIN NOTED.ABLE TO SELF TURN
[2022-02-02] MEDS: cefTRIAXone 2,000 MG in DEXTROSE 5% 100 ML IV SCH (02:20)
--- NOTE | 2022-02-02 02:26 | NUR ---
PTS CONDITION REMAINS UNCHANGED.ON ROOM AIR.NO S/SX OF PAIN NOTED.
[2022-02-02] MEDS: metroNIDAZOLE 500 MG/NS PREMIX 100 ML IV SCH ×3 (04:06→20:37)
[2022-02-02] MEDS: NACL 0.9% 1,000 ML IV SCH (04:13)
--- NOTE | 2022-02-02 05:30 | NUR ---
PT AWAKE; DRANK WATER, NO S/SX OF ASPIRATION NOTED.DENIES PAIN.
[2022-02-02 05:36] LABS: BASOPHILS # (AUTO) 0.1 K/uL (0.00-0.22); BASOPHILS % (AUTO) 0.8 % (0.0-2.0); EOSINOPHILS # (AUTO) 0.2 K/uL (0-0.4); EOSINOPHILS % (AUTO) 2.4 % (0.0-4.0); HEMATOCRIT 33.9 % (36-52); HEMOGLOBIN 11.6 g/dL (12.0-18.0); LYMPHOCYTES # (AUTO) 1.7 K/uL (2.0-11.5); LYMPHOCYTES % (AUTO) 20.8 % (20.5-51.1); MEAN CORPUSCULAR HEMOGLOBIN 29 pg (27-31); MEAN CORPUSCULAR HGB CONC 34 g/dL (33-37); MONOCYTES # (AUTO) 0.8 K/uL (0.8-1.0); MONOCYTES % (AUTO) 9.9 % (1.7-9.3); NEUTROPHILS # (AUTO) 5.2 K/uL (1.8-7.7); NEUTROPHILS % (AUTO) 66.1 % (42.2-75.2); PLATELET COUNT (AUTO) 170 K/uL (140-450); RED BLOOD CELL COUNT(AUTO) 3.99 MIL/uL (4.20-6.10); RED CELL DISTRIBUTION WIDTH 13.3 % (11.6-13.7); WHITE BLOOD COUNT (AUTO) 7.9 K/uL (4.8-10.8)
--- NOTE | 2022-02-02 07:20 | NUR ---
REPORT GIVEN TO ROSS COLLINS FOR CONTINUITY OF CARE
--- NOTE | 2022-02-02 07:30 | NUR ---
RECEIVED REPORT FROM YULISA COLLINS.pt.IS SLEEPING AT THE TIME , ON ROOM AIR O2 SAT 97% IV FLUID HAS GATE#18 RT AC INFUSING NS 100 ML/HR. SKIN DRY TO TOUCH COLOR SLIGHTLY PALE.HAHN CATH DRAIN LYDIA URINE WITH SEAMEN.
[2022-02-02] MEDS: ALBUTEROL SULFATE/IPRATROPIU 3 ML SOL IH SCH ×3 (07:31→19:12)
--- NOTE | 2022-02-02 07:31 | NUR ---
PT RECEIVED FROM [facility] RT, PT IS RESTING COMFORTABLE IN BED, PT IS SATING 94% ON ROOM AIR, PT GIVEN TX AND TOLERATED TX WELL. PT ALSO FOLLOWED UP WITH GOOD EFFORT WITH THEIR INCENTIVE SPIROMETRY. PT IS CURRENTLY IN NO RESPIRATORY DISTRESS AND SATURATING WELL ON ROOM AIR. AMBU BAG AT BEDSIDE.
[2022-02-02] MEDS: PANTOPRAZOLE 40 MG INJ VIAL IVP SCH (08:13)
[2022-02-02] MEDS: CALCIUM CARBONATE 500 MG TAB PO SCH ×2 (08:13→20:37)
--- NOTE | 2022-02-02 08:30 | NUR ---
ESILY AWAKE BY NAME,STILL HANE SORE THROAT AND COUGHT OCCASIONALLY.
--- NOTE | 2022-02-02 09:00 | NUR ---
SEEN BY DR. CLAY , ORDER RECEIVED,PT. DOWN GRADE TO TELE.
[2022-02-02] MEDS: ENOXAPARIN 40 MG/0.4 ML SYR SUBQ SCH (09:01)
--- NOTE | 2022-02-02 12:30 | NUR ---
WAKE HIM UP FOR LUNCH. TOOK ABOUT 75% OF THE REGULAR DIET TRAY.
[2022-02-02 13:37] LABS: ANION GAP 11.7 (8-16); CARBON DIOXIDE 24.7 mmol/L (21-32); CREATININE 0.8 mg/dL (0.6-1.3); POTASSIUM 3.4 mmol/L (3.5-5.1)
--- NOTE | 2022-02-02 14:04 | NUR ---
02/02/22 RD INITIAL ASSESSMENT COMPLETED PLEASE REFER TO NUTRITION ASSESSMENT UNDER CARE ACTIVITY FOR ESTIMATED NUTRITIONAL NEEDS. 1. CONTINUE REGULAR DIET TOLERATED 2. MONITOR NUTRITION RELATED LAB VALUES AND PO INTAKE. 3. RD TO FOLLOW-UP 7 DAYS, LOW RISK REVIEWED BY MI IGNACIO RD
--- NOTE | 2022-02-02 16:23 | NUR ---
VISIT BY FAMILY FRIENDS AWAKE ALERT NO SOB OR COUGHING.
--- NOTE | 2022-02-02 16:45 | NUR ---
HAHN'S CATH REMOVED.
--- NOTE | 2022-02-02 19:30 | NUR ---
ASSUMED CARE OF PT.INITIAL ASSESSMENT COMPLETED.PT AWAKE ALERT AND ORIENTED X4. ON ROOM AIR.NO SOB NOTED.JONAS PICC LINE INTACT W/GOOD BLOOD RETURN TO BOTH PORTS,SALINE LOCK.PERIPHERAL IV TO RT AC AND LT AC, REMOVED.ON REGULAR DIET WITH GOOD APPETITE,DENIES.ABLE TO VOID FREELY.ABLE TO MOVE ALL EXTREMITIES.SKIN INTACT WITH MULTIPLE TATTOOS.DENIES PAIN.WILL CONTINUE TO MONITOR PT.PT IS TELE STATUS.
--- NOTE | 2022-02-02 20:32 | NUR ---
VISITED BY FAMILY, PLAN OF CARE DISCUSSED WITH PT AND FAMILY,VERBALIZED UNDERSTANDING
--- NOTE | 2022-02-02 21:35 | NUR ---
PT TRANSFERRED TO TELE IN STABLE CONDITION.ON ROOM AIR.NO SOB NOTED.PICC LINE TO JONAS INTACT.PTS DAD WITH US DURING TRANSFER,PT WALKED TOWARDS BED W/STEADY GAIT.DENIES PAIN.SETTLED TO BED,CALL LIGHT WITHIN REACH.KAJAL RN AWARE OF TRANSFER
--- NOTE | 2022-02-02 23:09 | NUR ---
PATIENT TO ROOM 2135 AWAKE ALERT NO C/O OF PAIN FATHER AT HIS BED SIDE. FATHER TOLD VISITING HOURS OVER TILL 09 A.M. PATIENT HAS A PICC LINE RIGHT UPPER ARM. INFUSING NS 5CC HOUR. PATIENT AMBULATES WELL TO BATH ROOM. VOID LUNGS DIMINISH ON ROOM AIR.SAT 97% NO DISTRESS NOTED.
[2022-02-03] VITALS (7 sets, daily range): BP systolic 106–129; BP diastolic 63–83
[2022-02-03] MEDS: cefTRIAXone 2,000 MG in DEXTROSE 5% 100 ML IV SCH (03:00)
[2022-02-03] MEDS: metroNIDAZOLE 500 MG/NS PREMIX 100 ML IV SCH ×2 (05:00→13:59)
[2022-02-03 07:06] LABS: ANION GAP 13.3 (8-16); CARBON DIOXIDE 24.5 mmol/L (21-32); CREATININE 0.8 mg/dL (0.6-1.3); POTASSIUM 3.8 mmol/L (3.5-5.1)
[2022-02-03 07:10] LABS: BASOPHILS # (AUTO) 0.1 K/uL (0.00-0.22); BASOPHILS % (AUTO) 1.1 % (0.0-2.0); EOSINOPHILS # (AUTO) 0.1 K/uL (0-0.4); EOSINOPHILS % (AUTO) 2.3 % (0.0-4.0); HEMOGLOBIN 12.3 g/dL (12.0-18.0); LYMPHOCYTES # (AUTO) 1.7 K/uL (2.0-11.5); LYMPHOCYTES % (AUTO) 27.7 % (20.5-51.1); MEAN CORPUSCULAR HEMOGLOBIN 29 pg (27-31); MEAN CORPUSCULAR HGB CONC 34 g/dL (33-37); MEAN CORPUSCULAR VOLUME 84.8 fL (80-94); MONOCYTES # (AUTO) 0.5 K/uL (0.8-1.0); MONOCYTES % (AUTO) 8.8 % (1.7-9.3); NEUTROPHILS # (AUTO) 3.7 K/uL (1.8-7.7); NEUTROPHILS % (AUTO) 60.1 % (42.2-75.2); PLATELET COUNT (AUTO) 202 K/uL (140-450); RED BLOOD CELL COUNT(AUTO) 4.24 MIL/uL (4.20-6.10); RED CELL DISTRIBUTION WIDTH 13.5 % (11.6-13.7); WHITE BLOOD COUNT (AUTO) 6.2 K/uL (4.8-10.8)
[2022-02-03] MEDS: ALBUTEROL SULFATE/IPRATROPIU 3 ML SOL IH SCH ×3 (07:14→19:35)
[2022-02-03] MEDS: PANTOPRAZOLE 40 MG INJ VIAL IVP SCH (09:59)
[2022-02-03] MEDS: CALCIUM CARBONATE 500 MG TAB PO SCH (09:59)
[2022-02-03] MEDS: ENOXAPARIN 40 MG/0.4 ML SYR SUBQ SCH (10:03)
--- NOTE | 2022-02-03 12:17 | NUR ---
DC PLANNING: PATIENT HAS AN ORDER STABLE FOR TRANSFER TO [facility]. FAXED TO [facility] [phone]. CM TO FOLLOW Addendum: 02/03/22 at 1322 by Deloris Quigley RN DC PLANNING: RECEIVED A CALL FROM AMELIA AT [facility] REQUESTING ATTENDING 'S PHONE NUMBER FOR PEER TO PEER. PROVIDE DR CLAY'S NUMBER AND UPDATED PT'S CLINICAL. DC PLAN PT WILL BE TRANSFERRING TO [facility] WHEN BED AVAILABLE. CM TO FOLLOW Addendum: 02/03/22 at 1426 by Deloris Quigley RN DC PLANNING: RECEIVED A CALL FROM [facility] JAMISON WITH [facility] UPDATED HER FOR THE CURRENT CLINICALS AND NOTIFIED HER PATIENT AND HIS MOTHER PREFERRED [facility] IF NO BED OK TO GO TO [facility]. PER MYLES WILL WORKING ON IT AND WILL CALL BACK. CM TO FOLLOW
--- NOTE | 2022-02-03 23:11 | NUR ---
PATIENT AWAKE ALERT NO C/O OF PAIN TO TRANSFER TO [facility] TO ROOM 433 GAVE REPORT TO AMELIA 2129. PATIENT TRANSFER AT 2200 .
== END 2022-02-03 22:00 | disposition short-term general hospital (02) | DRG 208 ==
LOC: MED 01:41 → MIC 05:06 → MED 05:10 → MTU 02-02 21:35
PROVIDERS: ADMIT Student in an Organized Health Care Education/Training Program; ATTEND Student in an Organized Health Care Education/Training Program
PROC: 0BH17EZ Insertion of Endotracheal Airway into Trachea, Via Natural or Artificial Opening (ICD-10-PCS; 2022-01-21)
PROC: 5A1935Z Respiratory Ventilation, Less than 24 Consecutive Hours (ICD-10-PCS; principal; 2022-01-31)
DX: J18.9 Pneumonia, unspecified organism (principal); G93.41 Metabolic encephalopathy; I21.4 Non-ST elevation (NSTEMI) myocardial infarction; N17.0 Acute kidney failure with tubular necrosis; J96.01 Acute respiratory failure with hypoxia; E87.2 Acidosis; M62.82 Rhabdomyolysis; E44.0 Moderate protein-calorie malnutrition; Z20.822 Contact with and (suspected) exposure to COVID-19; F19.10 Other psychoactive substance abuse, uncomplicated; E83.42 Hypomagnesemia; E83.51 Hypocalcemia; F14.10 Cocaine abuse, uncomplicated; F11.10 Opioid abuse, uncomplicated; Z68.33 Body mass index [BMI] 33.0-33.9, adult
CPT/HCPCS: 31500; 36415; 36600; 51702; 70450; 71045; 80048; 80053; 80305; 82150; 82550; 82553; 82803; 83036; 83605; 83690; 83735; 83880; 84100; 84443; 84484; 85025; 85610; 85730; 87040; 87070; 87081; 87205; 89220; 93005; 94003; 94010; 94640; 96361; 96365; 99291; C9113; J0696; J1644; J1650; J2250; J2543; J2704; J3490; J7060; Q0092

== ENCOUNTER 2022-07-30 14:56 | Inpatient (IN) | payer OTHER ==
[~2022-07-30] VITALS: Ht 177.8 cm; Wt 95.3 kg
--- NOTE | 2022-07-30 14:57 | NUR ---
PATIENT BIBA TO BED 7.
--- NOTE | 2022-07-30 14:59 | NUR ---
MD [place] AT BEDSIDE FOR EVALUATION
[2022-07-30 15:01] VITALS: BP 143/126
[2022-07-30] MEDS ORDERED: ONDANSETRON 4 MG/2 ML VIAL IVP ONE (15:10)
[2022-07-30] MEDS ORDERED: NACL 0.9% 1,000 ML IV ONE ×2 (15:10→17:40)
--- NOTE | 2022-07-30 15:10 | NUR ---
27YO MALE PT BIBA HOME D/T ACCIDENTIAL OVERDOSE. PER EMS, 911 CALLED BY MOM AFTER FINDING PT UNRESPONSIVE ON FLOOR. ON ROUTE, PT PLACED ON 6L VIA NC AND GIVEN 8MG INTRANASAL W/ IMPROVEMENT. AT ARRIVAL PT AAOX3 W/ SLIGHT DELAY IN RESPONSE. STATES FENTANYL USE AND UNABLE TO RECALL PRIOR EVENTS. +NAUSEA. DENIES CHEST PAIN OR SOB. ON SPORT PSYCHOLOGIST. BED AT LOWEST POSITION, BED RAILS UPX2. HX: DENIES NKA
--- NOTE | 2022-07-30 15:27 | NUR ---
LAB AT BEDSIDE
[2022-07-30 15:38] LABS: HEMATOCRIT 46.6 % (36-52); HEMOGLOBIN 15.7 g/dL (12.0-18.0); MEAN CORPUSCULAR HEMOGLOBIN 29 pg (27-31); MEAN CORPUSCULAR HGB CONC 34 g/dL (33-37); MEAN CORPUSCULAR VOLUME 85.3 fL (80-94); PLATELET COUNT (AUTO) 247 K/uL (140-450); RED BLOOD CELL COUNT(AUTO) 5.47 MIL/uL (4.20-6.10); RED CELL DISTRIBUTION WIDTH 14.1 % (11.6-13.7); WHITE BLOOD COUNT (AUTO) 20.8 K/uL (4.8-10.8)
--- NOTE | 2022-07-30 15:44 | NUR ---
XRAY AT BEDSIDE
[2022-07-30 15:57] LABS: ALBUMIN 3.7 g/dL (3.4-5.0); ANION GAP 16.5 (8-16); ASPARTATE AMINOTRANSFERASE 15 U/L (15-37); CARBON DIOXIDE 24.5 mmol/L (21-32); CHLORIDE 104 mmol/L (98-107); CREATININE 1.5 mg/dL (0.6-1.3); GFR ARICAN-AMERICAN 73 mL/min (>90); GLUCOSE 251 mg/dL (74-106); LYMPHOCYTES % (MANUAL) 5 % (20-46); MONOCYTES % (MANUAL) 7 % (5-12); SODIUM SERUM 141 mmol/L (136-145); TOTAL BILIRUBIN 0.2 mg/dL (0.0-1.0); UREA NITROGEN, BLOOD 18 mg/dL (7-18)
[2022-07-30 15:59] LABS: ACETAMINOPHEN < 0.5 ug/ml (10-30); SALICYLATE < 2.8 mg/dL (2.8-20.0)
[2022-07-30] MEDS ORDERED: NACL 0.9% 1,000 ML IV SCH (16:10)
[2022-07-30] MEDS ORDERED: ASPIRIN 325 MG TAB PO ONE (16:10)
--- NOTE | 2022-07-30 16:25 | NUR ---
urinal left at bedside
[2022-07-30] MEDS ORDERED: MAG SULF 2000 MG/WATER PREMIX 50 ML IV ONE (16:30)
[2022-07-30] MEDS ORDERED: cefTRIAXone 1,000 MG VIAL ONE (16:34)
[2022-07-30] MEDS ORDERED: CALCIUM GLUCONATE 10% 1,000 MG in NACL 0.9% 50 ML IV ONE (17:40)
[2022-07-30 18:38] LABS: APPEARANCE,URINE CLEAR (CLEAR); BILIRUBIN,URINE NEGATIVE (NEGATIVE); BLOOD, URINE NEGATIVE (NEGATIVE); COLOR,URINE YELLOW (YELLOW); LEUKOCYTE ESTERASE ,URINE NEGATIVE (NEGATIVE); NITRITE, URINE NEGATIVE (NEGATIVE); UGLUCOSE 3+ (NEGATIVE)
[2022-07-30] MEDS ORDERED: ZOLPIDEM 10 MG TAB PO PRN (19:30)
[2022-07-30] MEDS ORDERED: ACETAMINOPHEN 325 MG TAB PO PRN (19:30)
[2022-07-30] MEDS ORDERED: DOCUSATE SODIUM 100 MG GELCAP PO PRN (19:30)
[2022-07-30] MEDS ORDERED: MAG SULF 2000 MG/WATER PREMIX 50 ML IV PRN (19:30)
[2022-07-30] MEDS ORDERED: LORazepam 2 MG/ML VIAL IVP PRN (19:30)
[2022-07-30] MEDS ORDERED: INSULIN LISPRO SLIDING SCALE 100 UNITS/ML VIAL SUBQ PRN (19:30)
[2022-07-30] MEDS ORDERED: POTASSIUM CHLORIDE 10 MEQ TABER PO PRN (19:30)
[2022-07-30] MEDS ORDERED: MORPHINE SULFATE 2 MG/ML SYR IVP PRN (19:30)
[2022-07-30] MEDS ORDERED: ONDANSETRON 4 MG/2 ML VIAL IVP PRN (19:30)
[2022-07-30] MEDS ORDERED: DEXTROSE 50% 50 ML SYR IVP PRN (19:30)
--- NOTE | 2022-07-30 19:32 | NUR ---
REPORT GIVEN TO MAYUR COLLINS. TRANSFER OF CARE AT THIS TIME
[2022-07-30] MEDS ORDERED: CALCIUM GLUC 1 GM/50 mL NS BAG 50 ML IV ONE (19:36)
--- NOTE | 2022-07-30 20:00 | NUR ---
RECEIVED REPORT FROM DAY SHIFT RN. PATIENT IS AOX4. COLE AT BEDSIDE. RR 10, BP. 86/56MMHG. IV LOCATED IN RIGHT AC. DENIED PAIN AND NAUSEA AND VOMITING AT THIS TIME. MEDICATED CALSIUM GLUCONATE, IVF NS AT 100ML/HR. AWAITING FOR FICU BED TO BE ADMITTED.
[2022-07-30] MEDS: BLOOD GLUCOSE MONITORING 1 DEV DEV FS SCH (20:39)
[2022-07-30] MEDS: NACL 0.9% 1,000 ML IV SCH (20:40)
[2022-07-31] VITALS (11 sets, daily range): BP systolic 96–130; BP diastolic 58–70
[2022-07-31] MEDS: NACL 0.9% 1,000 ML IV SCH ×2 (06:47→13:15)
[2022-07-31 07:15] LABS: BASOPHILS # (AUTO) 0.1 K/uL (0.00-0.22); BASOPHILS % (AUTO) 0.4 % (0.0-2.0); EOSINOPHILS % (AUTO) 0.1 % (0.0-4.0); HEMATOCRIT 39.8 % (36-52); HEMOGLOBIN 13.3 g/dL (12.0-18.0); LYMPHOCYTES # (AUTO) 3.1 K/uL (2.0-11.5); LYMPHOCYTES % (AUTO) 21.9 % (20.5-51.1); MEAN CORPUSCULAR HEMOGLOBIN 29 pg (27-31); MEAN CORPUSCULAR HGB CONC 33 g/dL (33-37); MEAN CORPUSCULAR VOLUME 86.2 fL (80-94); MONOCYTES # (AUTO) 1.1 K/uL (0.8-1.0); MONOCYTES % (AUTO) 7.9 % (1.7-9.3); NEUTROPHILS # (AUTO) 9.9 K/uL (1.8-7.7); NEUTROPHILS % (AUTO) 69.7 % (42.2-75.2); PLATELET COUNT (AUTO) 218 K/uL (140-450); RED BLOOD CELL COUNT(AUTO) 4.62 MIL/uL (4.20-6.10); RED CELL DISTRIBUTION WIDTH 14.2 % (11.6-13.7); WHITE BLOOD COUNT (AUTO) 14.2 K/uL (4.8-10.8)
[2022-07-31 07:22] LABS: ANION GAP 9.5 (8-16); CARBON DIOXIDE 29.5 mmol/L (21-32); CREATININE 1.2 mg/dL (0.6-1.3)
[2022-07-31] MEDS: BLOOD GLUCOSE MONITORING 1 DEV DEV FS SCH ×4 (07:24→21:58)
--- NOTE | 2022-07-31 07:35 | NUR ---
REPORT GIVEN VIRGINIE COLLINS. PQATIENT IS STABLE TO TRANSFER TO ICU
--- NOTE | 2022-07-31 07:55 | NUR ---
Report given to receiving RN. VSS. Pt aware and agreeable to admission. Pt transfered with belongings via [facility].
--- NOTE | 2022-07-31 09:27 | NUR ---
PT WAS BROUGHT TO ICU BY MANNY @0843. PT WAS FULLY A/OX4, SPEAKS FULL SENTENCES, FOLLOWS COMMAND, DENIES ANY ACUTE DISTRESS. NO SOB. BREATHING EVEN. PT WAS ALOC 2ND TO FENTANYL USE @HOME, FOUND DOWN THE GROUND, 911 WAS CALLED BY MOM. LAB SHOWS TROP+, THEREFORE PT WAS ADMITTED TO ICU. PT WAS PUT ON BED, MONITOR ON. URINAL GIVEN IN CASE OF URINATION. [facility] WAS CALLED FOR BREAKFAST TRAY. NO ONE PICKUP PHONE. MSG LEFT. KEEPS WATCHING.
--- NOTE | 2022-07-31 10:35 | NUR ---
PATIENT HAS BEEN SCREENED AND CATEGORIZED LOW NUTRITION RISK. PATIENT WILL BE SEEN WITHIN 7 DAYS OF ADMISSION. 08/06/[address]
[2022-07-31] MEDS ORDERED: MAG SULF 2000 MG/WATER PREMIX 50 ML IV PRN (13:15)
[2022-07-31] MEDS ORDERED: HYDROcodone/APAP 7.5/325 MG 1 TAB PO PRN (13:15)
[2022-07-31] MEDS ORDERED: ONDANSETRON 4 MG/2 ML VIAL IVP PRN (13:15)
[2022-07-31] MEDS ORDERED: ACETAMINOPHEN 325 MG TAB PO PRN (13:15)
[2022-07-31] MEDS ORDERED: POTASSIUM CHLORIDE 10 MEQ TABER PO PRN (13:15)
--- NOTE | 2022-07-31 13:42 | NUR ---
DC [age]ANN[age] YRS OLD MALE PATIENT WAS ADMITTED FROM HOME WITH A DX OF DRUG OVERDOSE ON FENTYNYL . PATIENT HAS A HX OF DRUG USE. [facility] SEEN PATIENT , ON ROOM AIR SATING 99% PATIENT HAS AN ORDER FOR STABLE FOR TRANSFER FAXED TO [facility] [phone]. CM TO FOLLOW.
[2022-07-31 13:56] LABS: BASOPHILS % (AUTO) 0.4 % (0.0-2.0); EOSINOPHILS % (AUTO) 0.3 % (0.0-4.0); LYMPHOCYTES # (AUTO) 2.2 K/uL (2.0-11.5); LYMPHOCYTES % (AUTO) 21.6 % (20.5-51.1); MEAN CORPUSCULAR HEMOGLOBIN 29 pg (27-31); MEAN CORPUSCULAR HGB CONC 33 g/dL (33-37); MEAN CORPUSCULAR VOLUME 86.2 fL (80-94); MONOCYTES # (AUTO) 0.7 K/uL (0.8-1.0); MONOCYTES % (AUTO) 7.2 % (1.7-9.3); NEUTROPHILS # (AUTO) 7.3 K/uL (1.8-7.7); NEUTROPHILS % (AUTO) 70.5 % (42.2-75.2); PLATELET COUNT (AUTO) 207 K/uL (140-450); RED BLOOD CELL COUNT(AUTO) 4.53 MIL/uL (4.20-6.10); RED CELL DISTRIBUTION WIDTH 14.3 % (11.6-13.7); WHITE BLOOD COUNT (AUTO) 10.3 K/uL (4.8-10.8)
--- NOTE | 2022-07-31 14:00 | NUR ---
PT ATE LUNCH WELL. PT WAS STABLE. PER MD ORDER. PT WAS DOWNGRADED TO TEL. WAITING FOR BED AVAILABLE.
[2022-07-31 14:16] LABS: PROTHROMBIN TIME 11.1 secs (10.8-13.4)
[2022-07-31 14:19] LABS: CARBON DIOXIDE 29.3 mmol/L (21-32); CREATININE 1.1 mg/dL (0.6-1.3); POTASSIUM 4.3 mmol/L (3.5-5.1)
[2022-07-31 14:28] LABS: BARBITURATE, URINE NEGATIVE ng/ml (NEG <=200); BENZODIAZEPINE, URINE NEGATIVE ng/mL (NEG <=200); CANNABINOID, URINE NEGATIVE ng/mL (NEG <=50); COCAINE, URINE POSITIVE ng/mL (NEG <=300); OPIATE, URINE NEGATIVE ng/mL (NEG <=2000); PHENCYCLIDINE SCREEN,URINE NEGATIVE ng/mL (NEG <=25)
[2022-07-31 14:36] LABS: CHOL/HDL RATIO 1.8 (1-4.5); FREE T4 (FREE THYROXINE) 0.92 ng/dL (0.76-1.46); MAGNESIUM 1.7 mg/dL (1.8-2.4); PHOSPHORUS 2.8 mg/dL (2.5-4.9); THYROID STIMULATING HORMONE 1.53 uIU/mL (0.34-3.74)
--- NOTE | 2022-07-31 14:44 | NUR ---
PT GOT ROOM IN [id number]. REPORT WAS CALLED AND GIVEN TO [facility]. PT IS READY TO BE TRANSFER NOW.
--- NOTE | 2022-07-31 16:00 | NUR ---
Patient transferred in from ICU in no acute distress. Mother at bedside. Denies discomfort at this time Patient expressed to be discharged home today, stated he would like to go to [facility] on an out-patient basis,he wants to go home with his mother first and make appointment to see his doctor by next week. Inbound Customer Service Representative Dr. Wylie made aware. Patient informed that it will be better if the patient goes home overnight for further assessment of his cardiac status. Patient still has echocardiogram that needs to be done. Patient and mother expressed understanding. Would like to wait for DR. Ramos to make rounds and speak with Dr. Ramos. Denies c/o chest pain nor Shortness of breath.
--- NOTE | 2022-07-31 16:00 | NUR ---
DC PLANNING ASSESSMENT COMPLETE PLEASE REFER TO ASSESSMENT FOR ADDITIONAL DETAILS MET WITH PT AT THE BEDSIDE TO COMPLETE ASSESSMENT. PT ANOX4 AND ABLE TO PROVIDE ALL OF HIS OWN INFORMATION PT IS A 27 YR OLD MALE ADMITTED TO [facility] FROM HOME W/ DX OF DRUG OVERDOSE. PT HAS PAST MEDICAL HX OF POLYSUBSTANCE USE. PT REPORTS HX OF DEPRESSION AND REPORTS [phone]) [phone] PSYCHIATRIC HOLDS IN THE PAST. PT REPORTS LAST PSYCHIATRIC HOSPITALIZATION 4-5 YRS AGO. PT REPORTS DEPRESSION CURRENTLY WELL MANAGED AND REPORTS MEETING WITH THERAPIST TO AID IN SX. PT DENIES CURRENT SI/HI/SIB/AH/VH. PT REPORTS CHRONIC HX OF POLYSUBSTANCE USE SPANNING FROM HIS EARLY 20'S. PT REPORTS BEING SOBER SINCE LAST HOSPITALIZATION IN [place]. HOWEVER REPORTS HE RELAPSED AND WAS FOUND BY HIS MOTHER. PT REPORTS PARTICIPATING IN OUT PT PROGRAM 1 YR AGO HOWEVER REPORTS HE DID NOT TAKE SERIOUS. [facility] PROVIDED PT WITH PSYCHO- EDUCATION ON SONAR TECHNICIAN SUBSTANCE USE. PT RECEPTIVE, VERBALIZED UNDERSTANDING AND ACCEPTED SUBSTANCE USE RESOURCES OFFERED BY . PT REPORTS BEING INDEPENDENT IN ALL ACTIVITIES AND DENIES USE OF DME. PT RESIDES IN A SINGLE STORY HOME WITH HIS PARENTS, AT THE ADDRESS LISTED ON FILE PT ACCEPTED SUBSTANCE USE RESOURCES OFFERED BY . PT REPORTS BEING SEEN BY [facility]. PT CURRENTLY HAS A STABLE FOR TRANSFER ORDER TO [facility]. PT AWARE, IF [facility] HAS AN OPEN BED HE WILL BE TRANSFERRED. PT CURRENTLY HAS A STABLE FOR TRANSFER ORDER TO [facility]. PT AWARE, IF [facility] HAS AN OPEN BED HE WILL BE TRANSFERRED. PT REPORTS TENTATIVE DC ORDER IS TO RETURN HOME WITH FAMILY PROVIDING TRANSPORTATION, WHEN MEDICALLY STABLE. Addendum: 07/31/22 at 1601 by Abdirashid GOODSON Amended: Links added.
--- NOTE | 2022-07-31 18:12 | NUR ---
no c/o chest pain nor shortness of breath. All safety measures in place
--- NOTE | 2022-07-31 19:30 | NUR ---
RECEIVED REPORT FROM DAY SHIFT NURSE ISAURO FOR CONTINUITY OF CARE. PATIENT IS A&O X4. PATIENT IS ON ROOM AIR; BREATHING IS NORMAL WITH SYMMETRICAL RISE AND FALL OF CHEST. IV IS A 20G IN THE RIGHT ARM, RUNNING NS 100. PATIENT IS STANDING AND WALKING AROUND THE BED VISITING WITH GIRLFRIEND. BED IS IN LOWEST POSITION, WHEELS LOCKED, CALL LIGHT IN PLACE. WILL CONTINUE TO OBSERVE PATIENT.
[2022-07-31] MEDS: DOCUSATE SODIUM 100 MG GELCAP PO SCH (20:43)
--- NOTE | 2022-07-31 23:00 | NUR ---
PATIENT'S BS WAS 81. GAVE PATIENT 118ML OF ORANGE JUICE. PATIENT DRANK. WILL CONTINUE TO OBSERVE PATIENT.
[2022-08-01] VITALS: BP 109/72
--- NOTE | 2022-08-01 00:54 | NUR ---
PATIENT'S MAGNESIUM WAS 1.7. ADMINISTERED PRN MAG RIDER TO PATIENT. PATIENT IS AWAKE, SITTING UP IN BED, GOING THROUGH HIS PHONE. PATIENT'S BREATHING IS NORMAL WITH SYMMETRICAL RISE AND FALL OF CHEST. WILL CONTINUE TO OBSERVE PATIENT.
--- NOTE | 2022-08-01 03:54 | NUR ---
PATIENT HAS SLEPT THROUGHOUT THE NIGHT. BREATHING IS NORMAL WITH SYMMETRICAL RISE AND FALL OF CHEST. WILL CONTINUE TO OBSERVE PATIENT.
[2022-08-01 04:00] VITALS: BP 105/57
[2022-08-01] MEDS: NACL 0.9% 1,000 ML IV SCH (05:53)
[2022-08-01 06:06] LABS: BASOPHILS # (AUTO) 0.1 K/uL (0.00-0.22); BASOPHILS % (AUTO) 0.7 % (0.0-2.0); EOSINOPHILS # (AUTO) 0.1 K/uL (0-0.4); EOSINOPHILS % (AUTO) 1.4 % (0.0-4.0); HEMATOCRIT 38.5 % (36-52); LYMPHOCYTES # (AUTO) 2.9 K/uL (2.0-11.5); LYMPHOCYTES % (AUTO) 31.2 % (20.5-51.1); MEAN CORPUSCULAR HEMOGLOBIN 29 pg (27-31); MEAN CORPUSCULAR HGB CONC 34 g/dL (33-37); MEAN CORPUSCULAR VOLUME 85.3 fL (80-94); MONOCYTES # (AUTO) 0.7 K/uL (0.8-1.0); MONOCYTES % (AUTO) 7.6 % (1.7-9.3); NEUTROPHILS # (AUTO) 5.6 K/uL (1.8-7.7); NEUTROPHILS % (AUTO) 59.1 % (42.2-75.2); PLATELET COUNT (AUTO) 208 K/uL (140-450); RED BLOOD CELL COUNT(AUTO) 4.51 MIL/uL (4.20-6.10); RED CELL DISTRIBUTION WIDTH 14.1 % (11.6-13.7); WHITE BLOOD COUNT (AUTO) 9.4 K/uL (4.8-10.8)
[2022-08-01 06:30] LABS: ANION GAP 10.9 (8-16); CARBON DIOXIDE 28.2 mmol/L (21-32); POTASSIUM 4.1 mmol/L (3.5-5.1)
[2022-08-01] MEDS: BLOOD GLUCOSE MONITORING 1 DEV DEV FS SCH ×2 (06:55→11:30)
--- NOTE | 2022-08-01 06:57 | NUR ---
PATIENT'S BS WAS 71. GAVE PATIENT 236ML OF ORANGE JUICE. PATIENT DRANK. OBTAINED PATIENT'S URINE CULTURE. PATIENT IS SITTING UP IN HIGH-FOWLERS IN BED. WILL ENDORSE CARE TO DAY SHIFT NURSE.
--- NOTE | 2022-08-01 07:26 | NUR ---
ENDORSED TO DAY SHIFT NURSE ISAURO FOR CONTINUITY OF CARE. PATIENT IS STABLE.
[2022-08-01 08:00] VITALS: BP_SYST 107; BP_SYST 110; BP_DIAS 71; BP_DIAS 75
[2022-08-01] MEDS: DOCUSATE SODIUM 100 MG GELCAP PO SCH ×2 (09:00→14:48)
[2022-08-01] MEDS ORDERED: PANTOPRAZOLE 40 MG INJ VIAL IVP SCH (09:00)
[2022-08-01 12:41] VITALS: BP 111/60
--- NOTE | 2022-08-01 14:30 | NUR ---
pATIENT DENIES CHEST PAIN NOR SHORTNESS OF BREATH, dISCHARGE INSTRUCTION GIVEN, EXPRESSED UNDERSTANDING. fATHER HERE TO TAKE PATIENT HOME
[2022-08-01 14:36] VITALS: BP 110/75
== END 2022-08-01 14:25 | disposition home or self-care (01) | DRG 918 ==
LOC: MED 14:56 → MTU 19:26 → MIC 07-31 07:38 → MTU 07-31 14:55
PROVIDERS: ADMIT Family Medicine; ATTEND Family Medicine
DX: T40.411A Poisoning by fentanyl or fentanyl analogs, accidental (unintentional), initial encounter (principal); D72.829 Elevated white blood cell count, unspecified; E86.0 Dehydration; Z20.822 Contact with and (suspected) exposure to COVID-19; Y92.89 Other specified places as the place of occurrence of the external cause; Z80.9 Family history of malignant neoplasm, unspecified
CPT/HCPCS: 36415; 71045; 80048; 80053; 80305; 81003; 82140; 82150; 82550; 82948; 83036; 83605; 83690; 83735; 83880; 84100; 84439; 84443; 84484; 85025; 85610; 85730; 87040; 87081; 87086; 93005; 96365; 96366; 96367; 96375; 99291; C9113; G0480; G0482; J0610; J0696; J1644; J2405; J3475